=== PATIENT | female | born 1960 | race Caucasian/White ===

== ENCOUNTER 2016-11-23 11:32 | Inpatient (IN) | payer MEDICAID ==
[~2016-11-23] VITALS: Ht 152.4 cm; Wt 86.9 kg
[~2016-11-23 11:32] MED LIST: ALBUAER3 IN; AZIT250T PO; ENAL20TA70; GLYB5TAB8; HYDR25TA4; LEVO112T32; METF-312
[2016-11-23] MEDS ORDERED: KETOROLAC TROMETH 30 MG/ML 1ML VIAL IV ONE (15:00)
[2016-11-23] MEDS ORDERED: SODIUM CHLORIDE 0.9% 1,000 ML IV ONE (15:00)
[2016-11-23] MEDS ORDERED: PIPERACILLIN-TAZOB 3.375GM 100 ML IV ONE (15:00)
[2016-11-23] MEDS ORDERED: VANCOMYCIN 1GM/250ML D5W 250 ML IV ONE (15:00)
[2016-11-23 15:41] LABS: Basophils # (auto) 0 uL; Basophils % (auto) 0.4 % (0.0-2.0); Eosinophils # (auto) 0.4 uL; Hematocrit 34.6 % (36.0-46.0); Hemoglobin 11.6 g/dL (12.2-16.2); Lymphocytes # (auto) 1.8 uL; Lymphocytes % (auto) 29.4 % (10.0-50.0); Mean Corpuscular Hemoglobin 30.2 pg (28.0-32.0); Mean Corpuscular Hgb Conc. 33.5 g/dL (32.0-36.0); Mean Corpuscular Volume 90.1 fL (80.0-100.0); Mean Platelet Volume 11.4 fL (7.4-10.4); Monocytes % (auto) 16.1 % (0.0-12.0); Neutrophils # (auto) 2.8 uL; Neutrophils % (auto) 47.1 % (37.0-80.0); Platelet Count (auto) 170 10^3/uL (140-450); SUSPECT VIEW TRANSMISSION
[2016-11-23] MEDS ORDERED: ENOXAPARIN SOD 100 MG/1 ML SYRINGE SC ONE (16:30)
[2016-11-23 17:22] LABS: Albumin 2.9 g/dL (3.4-5.0); BUN/Creatinine Ratio 25.3; Bilirubin, Total 0.5 mg/dL (0.2-1.0); Calcium 8.2 mg/dL (8.5-10.1); Potassium 3.4 mmol/L (3.5-5.1); Total Protein 6.4 g/dL (6.4-8.2)
[2016-11-23] MEDS ORDERED: TEMAZEPAM 15 MG CAP PO PRN (20:00)
[2016-11-23] MEDS ORDERED: MORPHINE SULF INJ 2 MG/ML SYRINGE 1ML IV PRN (20:00)
[2016-11-23] MEDS ORDERED: DEXTROSE (50%) 50ML SYRG IV PRN (20:00)
[2016-11-23] MEDS ORDERED: ALBUTEROL SULF 2.5 MG/0.5ML(0.5%) NEB SOLN NEB PRN (20:00)
[2016-11-23] MEDS ORDERED: DOCUSATE SOD 100 MG CAP PO PRN (20:00)
[2016-11-23] MEDS ORDERED: HYDROcodone-ACET 5/325MG TAB PO PRN (20:00)
[2016-11-23] MEDS ORDERED: ONDANSETRON HCL 4 MG/2 ML VIAL IV PRN (20:00)
[2016-11-23] MEDS ORDERED: BACLOFEN 10 MG TAB PO PRN (20:00)
[2016-11-23] MEDS ORDERED: ERGOCALCIFEROL 50,000 UNIT(1.25MG) CAP PO SCH (20:00)
[2016-11-23] MEDS ORDERED: cefTRIAXone 1GM/50ML D5W 50 ML IV ONE (20:00)
[2016-11-23] MEDS ORDERED: VANCOMYCIN PER PHARMACY 0 MG IV SCH (20:00)
[2016-11-23] MEDS ORDERED: POTASSIUM CHLORIDE 8 MEQ TAB PO ONE (20:00)
[2016-11-23] MEDS ORDERED: ACETAMINOPHEN 325 MG TAB PO PRN (20:00)
[2016-11-23 21:59] LABS: B-Type Natriuretic Peptide 7.43 pg/mL (0-100); Temperature: 23.4 C (20.0-25.0)
[2016-11-23] MEDS ORDERED: FAMOTIDINE 20 MG TAB PO SCH (22:00)
[2016-11-23 22:10] VITALS: BP 141/59
[2016-11-23] MEDS: ACCU-CHEK COMFORT CURVE STRIP VI SCH (23:04)
[2016-11-23] MEDS: ATORVASTATIN 20 MG TAB PO SCH (23:04)
[2016-11-23] MEDS: InsuLIN REG 1unit/0.01ml Soln (100units/ml) SC SCH (23:04)
[2016-11-23] MEDS: SODIUM CHLOR 0.9% PF (SALINE LOCK) 10ML VIAL IV SCH (23:04)
[2016-11-23] MEDS: INSULIN DETEMIR(LEVEMIR) 1unit/0.01ml Soln (100units/ml) SC SCH (23:05)
[2016-11-24] VITALS (8 sets, daily range): BP systolic 132–146; BP diastolic 54–77
[2016-11-24 05:50] LABS: Basophils # (auto) 0 uL; Basophils % (auto) 0.7 % (0.0-2.0); Eosinophils # (auto) 0.4 uL; Eosinophils % (auto) 7.2 % (0.0-7.0); Hematocrit 32.3 % (36.0-46.0); Hemoglobin 10.6 g/dL (12.2-16.2); Lymphocytes # (auto) 1.8 uL; Lymphocytes % (auto) 31.5 % (10.0-50.0); Mean Corpuscular Hemoglobin 29.9 pg (28.0-32.0); Mean Corpuscular Hgb Conc. 32.7 g/dL (32.0-36.0); Mean Corpuscular Volume 91.5 fL (80.0-100.0); Mean Platelet Volume 11.7 fL (7.4-10.4); Monocytes # (auto) 0.9 uL; Monocytes % (auto) 16.5 % (0.0-12.0); Neutrophils # (auto) 2.5 uL; Neutrophils % (auto) 44.1 % (37.0-80.0); Platelet Count (auto) 164 10^3/uL (140-450); Red Cell Distribution Width 15.9 % (11.6-16.0); White Blood Cell 5.7 10^3/uL (4.4-10.8)
[2016-11-24 06:03] LABS: Albumin 3.1 g/dL (3.4-5.0); Calcium 8.3 mg/dL (8.5-10.1); Potassium 3.7 mmol/L (3.5-5.1)
[2016-11-24 06:08] LABS: Bilirubin, Total 0.4 mg/dL (0.2-1.0); Total Protein 6.2 g/dL (6.4-8.2)
[2016-11-24] MEDS: LEVOTHYROXINE SODIUM 100 MCG TAB PO SCH (06:40)
[2016-11-24] MEDS: SODIUM CHLOR 0.9% PF (SALINE LOCK) 10ML VIAL IV SCH ×3 (06:40→22:25)
[2016-11-24] MEDS: buPROPion HCL 75 MG TAB PO SCH ×2 (06:40→18:17)
[2016-11-24] MEDS: FUROSEMIDE 20 MG TAB PO SCH ×2 (06:41→17:46)
[2016-11-24] MEDS: ACCU-CHEK COMFORT CURVE STRIP VI SCH ×4 (06:54→22:38)
[2016-11-24] MEDS: InsuLIN REG 1unit/0.01ml Soln (100units/ml) SC SCH ×4 (06:55→22:38)
[2016-11-24 07:35] LABS: Urine Bilirubin Negative (Negative); Urine Blood Negative /uL (Negative); Urine Color Yellow (Yellow); Urine Glucose Normal (Normal); Urine Ketone Negative (Negative); Urine Nitrite Negative (Negative); Urine RBC 2 /hpf (0 - 4); Urine Squamous Epithelial Cell FEW /hpf (<5); Urine Urobilinogen Normal (Negative); Urine pH 5.5 (5.0-8.0)
[2016-11-24] MEDS: Boost Glucose Control 8 Ounces PO SCH ×3 (08:00→17:32)
[2016-11-24] MEDS: cefTRIAXone 1GM/50ML D5W 50 ML IV SCH (09:52)
[2016-11-24] MEDS: POTASSIUM CHLORIDE 8 MEQ TAB PO SCH ×2 (09:53→22:24)
[2016-11-24] MEDS: ZINC SULFATE 220 MG CAP PO SCH (09:53)
[2016-11-24] MEDS: B-COMPLEX W/ C & FOLIC ACID(NEPHROVITE TAB) PO SCH (09:53)
[2016-11-24] MEDS: MULTIPLE VITAMIN TAB PO SCH (09:53)
[2016-11-24] MEDS: ALLOPURINOL 100 MG TAB PO SCH (09:53)
[2016-11-24] MEDS: FAMOTIDINE 20 MG TAB PO SCH (09:53)
[2016-11-24] MEDS: ENOXAPARIN SOD 40 MG/0.4 ML SYRINGE SC SCH (09:54)
[2016-11-24] MEDS ORDERED: ERGOCALCIFEROL 50,000 UNIT(1.25MG) CAP PO SCH (10:00)
[2016-11-24] MEDS: FLORASTOR (S. BOULARDII) 250 MG CAP PO SCH (12:15)
[2016-11-24] MEDS ORDERED: VANCOMYCIN 1GM/250ML D5W 250 ML IV SCH (15:00)
[2016-11-24] MEDS: ATORVASTATIN 20 MG TAB PO SCH (22:24)
[2016-11-24] MEDS: INSULIN DETEMIR(LEVEMIR) 1unit/0.01ml Soln (100units/ml) SC SCH (22:47)
[2016-11-25 05:34] VITALS: BP 143/75
[2016-11-25] MEDS: SODIUM CHLOR 0.9% PF (SALINE LOCK) 10ML VIAL IV SCH (06:16)
[2016-11-25] MEDS: buPROPion HCL 75 MG TAB PO SCH (06:16)
[2016-11-25] MEDS: LEVOTHYROXINE SODIUM 100 MCG TAB PO SCH (06:16)
[2016-11-25] MEDS: FUROSEMIDE 20 MG TAB PO SCH (06:16)
[2016-11-25] MEDS: ACCU-CHEK COMFORT CURVE STRIP VI SCH ×2 (06:43→11:30)
[2016-11-25] MEDS: InsuLIN REG 1unit/0.01ml Soln (100units/ml) SC SCH ×3 (06:52→11:30)
[2016-11-25 07:06] LABS: BUN/Creatinine Ratio 22.1; Calcium 8.3 mg/dL (8.5-10.1); Potassium 4.1 mmol/L (3.5-5.1)
[2016-11-25] MEDS ORDERED: LEVO100T8 PO (07:36)
[2016-11-25] MEDS ORDERED: INSLISPI SC (07:36)
[2016-11-25] MEDS ORDERED: CLIN1CAP4 PO (07:36)
[2016-11-25] MEDS ORDERED: FURO20TA3 PO (07:36)
[2016-11-25] MEDS ORDERED: ALLO100T PO (07:36)
[2016-11-25] MEDS ORDERED: ATOR80TA PO (07:36)
[2016-11-25] MEDS ORDERED: LEVO250T45 PO (07:36)
[2016-11-25] MEDS ORDERED: INSLANTI SC (07:36)
[2016-11-25 08:00] VITALS: BP 142/81
[2016-11-25] MEDS: Boost Glucose Control 8 Ounces PO SCH ×2 (08:00→12:23)
[2016-11-25 09:24] VITALS: BP 142/81
[2016-11-25] MEDS: cefTRIAXone 1GM/50ML D5W 50 ML IV SCH (09:52)
[2016-11-25] MEDS: FLORASTOR (S. BOULARDII) 250 MG CAP PO SCH (10:00)
[2016-11-25] MEDS: ALLOPURINOL 100 MG TAB PO SCH (10:01)
[2016-11-25] MEDS: B-COMPLEX W/ C & FOLIC ACID(NEPHROVITE TAB) PO SCH (10:01)
[2016-11-25] MEDS: MULTIPLE VITAMIN TAB PO SCH (10:01)
[2016-11-25] MEDS: ZINC SULFATE 220 MG CAP PO SCH (10:01)
[2016-11-25] MEDS: FAMOTIDINE 20 MG TAB PO SCH (10:01)
[2016-11-25] MEDS: POTASSIUM CHLORIDE 8 MEQ TAB PO SCH (10:01)
[2016-11-25] MEDS: ENOXAPARIN SOD 40 MG/0.4 ML SYRINGE SC SCH (10:02)
[2016-11-25 12:33] VITALS: BP 143/92
[2016-11-25 12:51] VITALS: BP 145/77
== END 2016-11-25 13:20 | disposition home or self-care (01) | DRG 383 ==
LOC: ER 11:55 → WEST WING 11:56
PROVIDERS: ADMIT Family Medicine; ATTEND Internal Medicine
DX: L03.115 Cellulitis of right lower limb (principal); E44.0 Moderate protein-calorie malnutrition; E10.21 Type 1 diabetes mellitus with diabetic nephropathy; I15.9 Secondary hypertension, unspecified; I12.9 Hypertensive chronic kidney disease with stage 1 through stage 4 chronic kidney disease, or unspecified chronic kidney disease; E78.5 Hyperlipidemia, unspecified; E87.6 Hypokalemia; I89.0 Lymphedema, not elsewhere classified; E10.22 Type 1 diabetes mellitus with diabetic chronic kidney disease; D63.8 Anemia in other chronic diseases classified elsewhere; E03.9 Hypothyroidism, unspecified; F32.9 Major depressive disorder, single episode, unspecified; F41.9 Anxiety disorder, unspecified; E66.9 Obesity, unspecified; J45.909 Unspecified asthma, uncomplicated; N18.3 Chronic kidney disease, stage 3 (moderate); Z79.4 Long term (current) use of insulin; Z82.3 Family history of stroke; Z82.49 Family history of ischemic heart disease and other diseases of the circulatory system; Z83.3 Family history of diabetes mellitus; Z80.9 Family history of malignant neoplasm, unspecified; Z68.37 Body mass index [BMI] 37.0-37.9, adult
CPT/HCPCS: 36415; 73590; 80048; 80053; 81001; 82962; 83036; 83880; 84443; 85025; 85379; 87040; 87081; 93306; 93971; 96365; 96367; 96372; J0696; J1815; J1885; J2543

== ENCOUNTER 2016-12-05 10:46 | Inpatient (IN) | payer MEDICAID ==
[~2016-12-05] VITALS: Ht 152.4 cm; Wt 90.9 kg
[~2016-12-05 10:46] MED LIST changes: +ALLO100T PO; +ATOR80TA PO; -AZIT250T PO; -ENAL20TA70; -HYDR25TA4; +INSLANTI SC; +INSLISPI SC; +LEVO100T8 PO; -LEVO112T32; -METF-312
[2016-12-05] MEDS ORDERED: PIPERACILLIN-TAZOB 3.375GM 100 ML IV ONE (15:00)
[2016-12-05] MEDS ORDERED: ONDANSETRON HCL 4 MG/2 ML VIAL IV ONE (15:00)
[2016-12-05] MEDS ORDERED: SODIUM CHLORIDE 0.9% 1,000 ML IV ONE (15:00)
[2016-12-05] MEDS ORDERED: MORPHINE SULF INJ 2 MG/ML SYRINGE 1ML IV ONE (15:00)
[2016-12-05] MEDS ORDERED: VANCOMYCIN 1GM/250ML D5W 250 ML IV ONE (15:00)
[2016-12-05 15:33] LABS: Basophils # (auto) 0 uL; Basophils % (auto) 0.4 % (0.0-2.0); DEFINITIVE VIEW TRANSMISSION; Eosinophils # (auto) 0.7 uL; Eosinophils % (auto) 12.9 % (0.0-7.0); Hematocrit 33.6 % (36.0-46.0); Hemoglobin 11.2 g/dL (12.2-16.2); Lymphocytes # (auto) 1.3 uL; Lymphocytes % (auto) 23.5 % (10.0-50.0); Mean Corpuscular Hemoglobin 30.4 pg (28.0-32.0); Mean Corpuscular Hgb Conc. 33.5 g/dL (32.0-36.0); Mean Corpuscular Volume 90.8 fL (80.0-100.0); Mean Platelet Volume 11.9 fL (7.4-10.4); Monocytes # (auto) 0.6 uL; Neutrophils % (auto) 52.2 % (37.0-80.0); Platelet Count (auto) 124 10^3/uL (140-450); Red Cell Distribution Width 15.9 % (11.6-16.0); White Blood Cell 5.8 10^3/uL (4.4-10.8)
[2016-12-05 15:35] LABS: Albumin 2.9 g/dL (3.4-5.0); Calcium 8.3 mg/dL (8.5-10.1); Potassium 4.1 mmol/L (3.5-5.1)
[2016-12-05 15:37] LABS: BUN/Creatinine Ratio 25.7
[2016-12-05 15:39] LABS: Bilirubin, Total 0.2 mg/dL (0.2-1.0); Total Protein 6.4 g/dL (6.4-8.2)
[2016-12-05] MEDS ORDERED: MORPHINE SULF INJ 2 MG/ML SYRINGE 1ML IV PRN (15:45)
[2016-12-05] MEDS ORDERED: TEMAZEPAM 15 MG CAP PO PRN (15:45)
[2016-12-05] MEDS ORDERED: DEXTROSE (50%) 50ML SYRG IV PRN (15:45)
[2016-12-05] MEDS ORDERED: LACTULOSE 20Gm/30ML SOLN PO PRN (15:45)
[2016-12-05] MEDS ORDERED: LORazepam 0.5 MG TAB PO PRN (15:45)
[2016-12-05] MEDS ORDERED: PROMETHAZINE HCL 25 MG/ML 1ML IV PRN (15:45)
[2016-12-05] MEDS ORDERED: ACETAMINOPHEN 500 MG TAB PO PRN (15:45)
[2016-12-05] MEDS ORDERED: HYDROcodone-ACET 5/325MG TAB PO PRN (15:45)
[2016-12-05] MEDS: cefTRIAXone 1GM/50ML D5W 50 ML IV SCH (17:04)
[2016-12-05] MEDS: ACCU-CHEK COMFORT CURVE STRIP VI SCH ×2 (17:04→22:10)
[2016-12-05] MEDS: SODIUM CHLORIDE 0.9% 1,000 ML IV SCH (17:04)
[2016-12-05] MEDS: InsuLIN REG 1unit/0.01ml Soln (100units/ml) SC SCH ×2 (17:06→22:10)
[2016-12-05] MEDS: ENOXAPARIN SOD 40 MG/0.4 ML SYRINGE SC SCH (17:10)
[2016-12-05] MEDS ORDERED: FURO20TA3 PO (17:46)
[2016-12-05] MEDS ORDERED: BUPR100T14 PO (17:48)
[2016-12-05] MEDS: CLINDAMYCIN 600MG IV 50 ML IV SCH (22:05)
[2016-12-05 22:11] VITALS: BP 135/56
[2016-12-06] MEDS: SODIUM CHLORIDE 0.9% 1,000 ML IV SCH ×2 (01:40→11:40)
[2016-12-06 05:00] VITALS: BP 137/66
[2016-12-06 05:25] LABS: Basophils # (auto) 0 uL; Basophils % (auto) 0.3 % (0.0-2.0); Eosinophils # (auto) 0.6 uL; Eosinophils % (auto) 11.6 % (0.0-7.0); Hematocrit 32.7 % (36.0-46.0); Hemoglobin 10.9 g/dL (12.2-16.2); Lymphocytes # (auto) 1.4 uL; Lymphocytes % (auto) 26.5 % (10.0-50.0); Mean Corpuscular Hemoglobin 30.3 pg (28.0-32.0); Mean Corpuscular Hgb Conc. 33.3 g/dL (32.0-36.0); Monocytes # (auto) 0.8 uL; Monocytes % (auto) 14.3 % (0.0-12.0); Neutrophils # (auto) 2.5 uL; Neutrophils % (auto) 47.3 % (37.0-80.0); Platelet Count (auto) 119 10^3/uL (140-450); White Blood Cell 5.3 10^3/uL (4.4-10.8)
[2016-12-06] MEDS: CLINDAMYCIN 600MG IV 50 ML IV SCH ×2 (05:33→15:12)
[2016-12-06 05:44] LABS: Cholesterol 152 mg/dL (< 200); HDL Cholesterol 32 mg/dL (40-59); LDL Cholesterol 101 mg/dL (< 100); Triglycerides 209 mg/dL (< 150)
[2016-12-06] MEDS: InsuLIN REG 1unit/0.01ml Soln (100units/ml) SC SCH ×3 (05:53→17:55)
[2016-12-06] MEDS: ACCU-CHEK COMFORT CURVE STRIP VI SCH ×3 (05:53→17:54)
[2016-12-06] MEDS: cefTRIAXone 1GM/50ML D5W 50 ML IV SCH (09:09)
[2016-12-06 09:30] VITALS: BP 125/72
[2016-12-06 13:30] VITALS: BP 132/61
[2016-12-06] MEDS: ENOXAPARIN SOD 40 MG/0.4 ML SYRINGE SC SCH (17:55)
[2016-12-06] MEDS ORDERED: CLIN1CAP4 PO (18:10)
[2016-12-06] MEDS ORDERED: CEPH250C PO (18:10)
[2016-12-06 18:13] VITALS: BP 137/63
[2016-12-06 18:33] VITALS: BP 137/63
== END 2016-12-06 19:37 | disposition home health service (06) | DRG 383 ==
LOC: ER 11:00 → OVERFLOW 11:01 → EAST 17:37
PROVIDERS: ADMIT Internal Medicine; ATTEND Internal Medicine
DX: L03.115 Cellulitis of right lower limb (principal); E11.22 Type 2 diabetes mellitus with diabetic chronic kidney disease; N18.3 Chronic kidney disease, stage 3 (moderate); D64.9 Anemia, unspecified; E03.9 Hypothyroidism, unspecified; E66.9 Obesity, unspecified; Z68.39 Body mass index [BMI] 39.0-39.9, adult; E78.5 Hyperlipidemia, unspecified; Z82.3 Family history of stroke; Z82.49 Family history of ischemic heart disease and other diseases of the circulatory system; Z83.3 Family history of diabetes mellitus; F32.9 Major depressive disorder, single episode, unspecified; F41.9 Anxiety disorder, unspecified; I12.9 Hypertensive chronic kidney disease with stage 1 through stage 4 chronic kidney disease, or unspecified chronic kidney disease; E11.65 Type 2 diabetes mellitus with hyperglycemia; M10.9 Gout, unspecified; J44.9 Chronic obstructive pulmonary disease, unspecified
CPT/HCPCS: 36415; 80053; 80061; 82962; 83036; 85025; 85652; 87040; 87081; 93971; 96365; 96375; J0696; J1815; J2405; J2543; J3490

== ENCOUNTER → 2018-06-01 | Day surgery (SDC) | payer BC ==
[~2018-06-01] VITALS: Ht 30.5 cm; Wt 0.5 kg
[~2018-06-01] MED LIST changes: +ACCU-CHEK COMFORT CURVE STRIP VI ONE; +ACET-1603 PO; +BUPIVACAINE HCL 50 ML ONE; +BUPR100T14 PO; +CEPH250C PO; +CLIN1CAP4 PO; +DEXAMETHASONE SOD PHOS 10MG/1ML VIAL INJ ONE; +FURO20TA3 PO; +HYDROmorphone HCL 2 MG/ML VL IV PRN; +IBUP600T27 PO; +KETOROLAC TROMETH 30 MG/ML 1ML VIAL IV ONE; +LABETALOL HCL 5 MG/ML 4ML SYRINGE IV PRN; +LIDOCAINE 1% HCL (LOCAL ANESTH.) INJ 20ML MDV ONE; +MEPERIDINE HCL (50 MG/ML) 1 ML VIAL ONE; +MIDAZOLAM HCL 1MG/1ML-2 ML VIAL IV PRN; +MIDAZOLAM HCL 1MG/1ML-2 ML VIAL ONE; +MORPHINE SULF(PF) 0.5MG/ML 10ML VIAL ONE; +MORPHINE SULFATE 4 MG/ML SYR/VIAL IV ONE; +MORPHINE SULFATE 4 MG/ML SYR/VIAL IV PRN; +ONDANSETRON HCL 4 MG/2 ML VIAL IV ONE; +PROPOFOL 10 MG/ML 20 ML IV ONE; +ROCURONIUM 10MG/ML 10ML VIAL IV ONE; +SUCCINYLCHOLINE CHLORIDE 20 MG/ML 10ML VIAL IV ONE; +ceFAZolin 1GM/50ML 100 ML IV ONE; +ePHEDrine SULFATE 50 MG/ML AMP IV PRN; +fentaNYL CITRATE 100 MCG/2 ML VL ONE
[2018-06-01 08:37] LABS: Basophils # (auto) 0.1 uL; Eosinophils # (auto) 0.4 uL; Eosinophils % (auto) 7.7 % (0.0-7.0); Hematocrit 38.2 % (36.0-46.0); Hemoglobin 12.3 g/dL (12.2-16.2); Lymphocytes % (auto) 33.8 % (10.0-50.0); Mean Corpuscular Hemoglobin 30.2 pg (28.0-32.0); Mean Corpuscular Hgb Conc. 32.3 g/dL (32.0-36.0); Mean Corpuscular Volume 93.6 fL (80.0-100.0); Monocytes # (auto) 0.6 uL; Neutrophils # (auto) 2.7 uL; Neutrophils % (auto) 46.5 % (37.0-80.0); Platelet Count (auto) 119 10^3/uL (140-450); Red Blood Cells 4.08 10^6/uL (4.0-5.20); Red Cell Distribution Width 15.5 % (11.8-14.3); White Blood Cell 5.8 10^3/uL (4.4-10.8)
[2018-06-01 08:50] LABS: BUN/Creatinine Ratio 20.9; Calcium 8.2 mg/dL (8.5-10.1); Potassium 3.9 mmol/L (3.5-5.1)
[2018-06-01 08:55] LABS: INR 0.96 (0.9-1.15); Partial Thromboplastin Time 28.5 sec (23.78-33.04); Prothrombin Time 10.3 sec (9.27-12.13)
[2018-06-01 12:16] VITALS: BP 145/67
== END | disposition home or self-care (01) ==
LOC: SUR 06:59
PROVIDERS: ATTEND Surgery
DX: K43.6 Other and unspecified ventral hernia with obstruction, without gangrene (principal); K42.9 Umbilical hernia without obstruction or gangrene; F41.9 Anxiety disorder, unspecified; F32.9 Major depressive disorder, single episode, unspecified; E66.9 Obesity, unspecified; J45.909 Unspecified asthma, uncomplicated; G47.33 Obstructive sleep apnea (adult) (pediatric); E03.9 Hypothyroidism, unspecified; N18.3 Chronic kidney disease, stage 3 (moderate); E11.22 Type 2 diabetes mellitus with diabetic chronic kidney disease; I12.9 Hypertensive chronic kidney disease with stage 1 through stage 4 chronic kidney disease, or unspecified chronic kidney disease; I25.10 Atherosclerotic heart disease of native coronary artery without angina pectoris; E78.5 Hyperlipidemia, unspecified; M10.9 Gout, unspecified; G43.909 Migraine, unspecified, not intractable, without status migrainosus; Z83.3 Family history of diabetes mellitus; Z82.49 Family history of ischemic heart disease and other diseases of the circulatory system; Z82.3 Family history of stroke; Z79.899 Other long term (current) drug therapy
CPT/HCPCS: 36415; 49572; 49585; 80048; 82962; 85025; 85610; 85730; 86850; 86900; 86901; J0330; J0690; J1100; J1885; J2001; J2175; J2250; J2405; J2704; J3010; J3490

== ENCOUNTER 2021-06-23 11:05 | Emergency (ER) | payer BC, MEDICAID ==
[~2021-06-23] VITALS: Ht 154.9 cm; Wt 81.6 kg
[~2021-06-23 11:05] MED LIST changes: -ACCU-CHEK COMFORT CURVE STRIP VI ONE; -BUPIVACAINE HCL 50 ML ONE; +BUPR-160 PO; -BUPR100T14 PO; +CEPH-322 PO; -CEPH250C PO; -CLIN1CAP4 PO; +CLIN300C8 PO; -DEXAMETHASONE SOD PHOS 10MG/1ML VIAL INJ ONE; -HYDROmorphone HCL 2 MG/ML VL IV PRN; -KETOROLAC TROMETH 30 MG/ML 1ML VIAL IV ONE; -LABETALOL HCL 5 MG/ML 4ML SYRINGE IV PRN; -LIDOCAINE 1% HCL (LOCAL ANESTH.) INJ 20ML MDV ONE; -MEPERIDINE HCL (50 MG/ML) 1 ML VIAL ONE; -MIDAZOLAM HCL 1MG/1ML-2 ML VIAL IV PRN; -MIDAZOLAM HCL 1MG/1ML-2 ML VIAL ONE; -MORPHINE SULF(PF) 0.5MG/ML 10ML VIAL ONE; -MORPHINE SULFATE 4 MG/ML SYR/VIAL IV ONE; -MORPHINE SULFATE 4 MG/ML SYR/VIAL IV PRN; -ONDANSETRON HCL 4 MG/2 ML VIAL IV ONE; -PROPOFOL 10 MG/ML 20 ML IV ONE; -ROCURONIUM 10MG/ML 10ML VIAL IV ONE; -SUCCINYLCHOLINE CHLORIDE 20 MG/ML 10ML VIAL IV ONE; -ceFAZolin 1GM/50ML 100 ML IV ONE; -ePHEDrine SULFATE 50 MG/ML AMP IV PRN; -fentaNYL CITRATE 100 MCG/2 ML VL ONE
[2021-06-23 12:17] LABS: Basophils # (auto) 0.1 10 ^3/uL (0-0.2); Basophils % (auto) 1.2 % (0.0-2.0); Eosinophils # (auto) 0.5 10 ^3/uL (0-0.8); Eosinophils % (auto) 7.7 % (0.0-7.0); Hematocrit 36.3 % (36.0-46.0); Hemoglobin 11.9 g/dL (12.2-16.2); Lymphocytes # (auto) 2.1 10 ^3/uL (0.4-5.4); Lymphocytes % (auto) 34.9 % (10.0-50.0); Mean Corpuscular Hemoglobin 30.3 pg (28.0-32.0); Mean Corpuscular Hgb Conc. 32.8 g/dL (32.0-36.0); Mean Corpuscular Volume 92.3 fL (80.0-100.0); Monocytes # (auto) 0.5 10 ^3/uL (0-1.3); Neutrophils % (auto) 48.2 % (37.0-80.0); Nucleated Red Blood Cells % 0.1 %; Red Blood Cells 3.93 10^6/uL (4.0-5.20); Red Cell Distribution Width 14.4 % (11.8-14.3); White Blood Cell 6.1 10^3/uL (4.4-10.8)
[2021-06-23 12:23] LABS: Albumin 3.6 g/dL (3.4-5.0); Calcium 8.7 mg/dL (8.5-10.1); Magnesium 2.7 mg/dL (1.6-2.6); Potassium 4.1 mmol/L (3.5-5.1)
[2021-06-23 12:29] LABS: Bilirubin, Total 0.3 mg/dL (0.2-1.0); Total Protein 7.4 g/dL (6.4-8.2)
[2021-06-23 14:05] LABS: Urine Bacteria FEW /hpf (None Seen); Urine Blood Negative /uL (Negative); Urine Specific Gravity 1.015 (1.001-1.035); Urine WBC 43 /hpf (0 - 5)
[2021-06-23 17:41] VITALS: BP 143/53
[2021-06-23] MEDS ORDERED: LIDOCAINE 1% HCL (LOCAL ANESTH.) INJ 20ML MDV IJ ONE (17:45)
[2021-06-23] MEDS ORDERED: cefTRIAXone SOD 1,000 MG VL IM ONE (17:45)
== END 2021-06-23 19:12 | disposition home or self-care (01) ==
LOC: ER 11:05
DX: N39.0 Urinary tract infection, site not specified (principal); J45.909 Unspecified asthma, uncomplicated; E11.9 Type 2 diabetes mellitus without complications; E78.5 Hyperlipidemia, unspecified; I10 Essential (primary) hypertension; Z20.822 Contact with and (suspected) exposure to COVID-19
CPT/HCPCS: 36415; 71045; 80053; 81001; 83735; 84484; 85025; 87426; 93005; 96372; 99285; J0696; J2001